=== PATIENT | male | born 1985 | race Hispanic/Latino ===

== ENCOUNTER 2018-05-29 19:16 | Emergency (ER) | payer SELFPAY ==
[~2018-05-29] VITALS: Ht 182.9 cm; Wt 113.6 kg
[2018-05-29 19:30] VITALS: BP 138/89
[2018-05-29] MEDS ORDERED: KEFLEX500 M1 PO (20:41)
== END 2018-05-29 21:00 | disposition home or self-care (01) | DRG 605 ==
LOC: ED 19:16
PROC: 0HQGXZZ Repair Left Hand Skin, External Approach (ICD-10-PCS; principal; 2018-05-29)
DX: S61.412A Laceration without foreign body of left hand, initial encounter (principal); F17.210 Nicotine dependence, cigarettes, uncomplicated; W26.8XXA Contact with other sharp object(s), not elsewhere classified, initial encounter; Y93.89 Activity, other specified; Y92.009 Unspecified place in unspecified non-institutional (private) residence as the place of occurrence of the external cause